=== PATIENT | female | born 1965 | race Caucasian/White ===

== ENCOUNTER → 2018-03-19 | Outpatient (CLI) | payer OTHER ==
[~2018-03-19] VITALS: Ht 172.7 cm; Wt 100.8 kg
[~2018-03-19] MED LIST: CLARITIN,ALAVAR10 MG PO; DILANTIN100 MG PO; OMEPRAZOLE40 M1 PO
== END | disposition home or self-care (01) ==
LOC: AMB 07:18
DX: Z12.11 Encounter for screening for malignant neoplasm of colon (principal); K22.10 Ulcer of esophagus without bleeding; K44.9 Diaphragmatic hernia without obstruction or gangrene; K29.70 Gastritis, unspecified, without bleeding; K31.7 Polyp of stomach and duodenum; K64.8 Other hemorrhoids; G40.909 Epilepsy, unspecified, not intractable, without status epilepticus; Z86.010 Personal history of colon polyps
CPT/HCPCS: 88305; 88342 TC; J2250